=== PATIENT | female | born 1965 | race Caucasian/White ===

== ENCOUNTER 2019-09-06 06:49 | Observation (INO) | payer BC, OTHER ==
[2019-09-06] MEDS ORDERED: ONDANSETRON 4 MG/2 ML VIAL IVP STA (07:16)
[2019-09-06] MEDS ORDERED: SODIUM CHLORIDE 0.9% 1,000 ML IV STA (07:16)
[2019-09-06] MEDS ORDERED: HYDROmorphone 0.5 MG/0.5 ML SYRINGE IVP STA (07:16)
--- NOTE | 2019-09-06 07:26 | ED ---
General Adult HPI - General Source: patient, RN notes reviewed Mode of arrival: ambulatory Limitations: no limitations <Tanner Sanches - Last Filed: 09/06/19 10:07> <Carroll Pizarro - Last Filed: 09/06/19 10:09> - General Chief complaint: Abdominal Pain Stated complaint: Abd Pain Time Seen by Provider: 09/06/19 06:52 - History of Present Illness Initial comments: 53-year-old female presents to the emergency department for chief complaint of abdominal pain 4 days. Patient states she has had sharp upper abdominal pain. States that sometimes it is also lower. Patient does have nausea vomiting over the past few days. No diarrhea. Unsure what makes the pain worse but does admit that laying down and movement make it worse. Patient denies fevers or chills. Denies any previous abdominal surgeries. Patient has no other complaints at this time including shortness of breath, chest pain, headache, or visual changes. (Tanner Sanches) - Related Data Home Medications Medication Instructions Recorded Confirmed Ascorbic Acid [Vitamin C] 1,000 mg PO DAILY 09/06/19 09/06/19 Cholecalciferol [Vitamin D3 (25 1,000 unit PO DAILY 09/06/19 09/06/19 Mcg = 1000 Iu)] Multivitamins, Thera [Multivitamin 1 tab PO DAILY 09/06/19 09/06/19 (formulary)] Turmeric Root Extract [Turmeric] 500 mg PO DAILY 09/06/19 09/06/19 Vitamin C/Biotin [Hair, Skin and 1 tab PO DAILY 09/06/19 09/06/19 Nails] Allergies Allergy/AdvReac Type Severity Reaction Status Date / Time No Known Allergies Allergy Verified 09/06/19 07:40 Review of Systems ROS Other: All systems not noted in ROS Statement are negative. <Tanner Sanches - Last Filed: 09/06/19 10:07> ROS Other: All systems not noted in ROS Statement are negative. <Carroll Pizarro - Last Filed: 09/06/19 10:09> ROS Statement: Those systems with pertinent positive or pertinent negative responses have been documented in the HPI. Past Medical History Additional Past Medical History / Comment(s): M/S, History of Any Multi-Drug Resistant Organisms: None Reported Past Surgical History: Orthopedic Surgery Additional Past Surgical History / Comment(s): compound left tibia. Past Psychological History: No Psychological Hx Reported Smoking Status: Current every day smoker Past Alcohol Use History: Occasional Past Drug Use History: None Reported <Tanner Sanches - Last Filed: 09/06/19 10:07> General Exam Limitations: no limitations General appearance: alert, in no apparent distress Head exam: Present: atraumatic, normocephalic, normal inspection Eye exam: Present: normal appearance, PERRL, EOMI. Absent: scleral icterus, conjunctival injection, periorbital swelling ENT exam: Present: normal exam, mucous membranes moist Neck exam: Present: normal inspection, full ROM. Absent: tenderness, meningismus, lymphadenopathy Respiratory exam: Present: normal lung sounds bilaterally. Absent: respiratory distress, wheezes, rales, rhonchi, stridor Cardiovascular Exam: Present: regular rate, normal rhythm, normal heart sounds. Absent: systolic murmur, diastolic murmur, rubs, gallop, clicks GI/Abdominal exam: Present: soft, tenderness (epigastric and RUQ tenderness, worse in the RUQ. ), normal bowel sounds. Absent: distended, guarding, rebound, rigid Expanded GI/Abdominal exam: Present: Mckeon's sign <Tanner Sanches - Last Filed: 09/06/19 10:07> Course Vital Signs 09/06/19 06:53 Temperature 98.3 F Pulse Rate 118 H Respiratory 18 Rate Blood Pressure 110/73 O2 Sat by Pulse 98 Oximetry Medical Decision Making - Lab Data Result diagrams: 09/06/19 07:36 09/06/19 07:36 <Tanner Sanches - Last Filed: 09/06/19 10:07> - Lab Data Result diagrams: 09/06/19 07:36 09/06/19 07:36 <Carroll Pizarro - Last Filed: 09/06/19 10:09> - Medical Decision Making Patient initially presents tachycardic. Patient is in pain at this time. She has to give right upper quadrant tenderness. No abdominal surgery history. Patient does have a white blood cell count 10.8. CMP and rectal. Urinalysis unremarkable however there are 15 white blood cells, culture pending. Ultrasound of the right upper quadrant shows sonographic Mckeon findings supportive clinical suspicion for acute cholecystitis as there is redemonstration of large intraluminal gallstone along with small stones and/or gallbladder sludge. Abnormal gallbladder wall thickening and positive sonographic Mckeon sign in patient with right upper quadrant pain and symptoms of nausea and vomiting acute cholecystitis is suspected. Patient was evaluated by Dr. Pizarro is in agreement. Contacted Dr. Shukla who does accept this admission. (Tanner Sanches) Patient also examined by myself, Dr. Pizarro. Patient still has moderate right upper quadrant tenderness on exam. Results reviewed. Case discussed in detail with Dr. Nolan, who will admit covering for surgical call. (Carroll Pizarro) - Lab Data Lab Results 09/06/19 09/06/19 09/06/19 Range/Units 07:36 07:36 07:36 WBC 10.8 H (3.8-10.6) k/uL RBC 4.65 (3.80-5.40) m/uL Hgb 14.4 (11.4-16.0) gm/dL Hct 43.3 (34.0-46.0) % MCV 93.1 (80.0-100.0) fL MCH 31.1 (25.0-35.0) pg MCHC 33.4 (31.0-37.0) g/dL RDW 12.3 (11.5-15.5) % Plt Count 306 (150-450) k/uL Neutrophils % 79 % Lymphocytes % 12 % Monocytes % 6 % Eosinophils % 1 % Basophils % 0 % Neutrophils # 8.6 H (1.3-7.7) k/uL Lymphocytes # 1.3 (1.0-4.8) k/uL Monocytes # 0.6 (0-1.0) k/uL Eosinophils # 0.1 (0-0.7) k/uL Basophils # 0.1 (0-0.2) k/uL Sodium (137-145) mmol/L Potassium (3.5-5.1) mmol/L Chloride (98-107) mmol/L Carbon Dioxide (22-30) mmol/L Anion Gap mmol/L BUN (7-17) mg/dL Creatinine (0.52-1.04) mg/dL Est GFR (CKD-EPI)AfAm (>60 ml/min/1.73 sqM) Est GFR (CKD-EPI)NonAf (>60 ml/min/1.73 sqM) Glucose (74-99) mg/dL Calcium (8.4-10.2) mg/dL Total Bilirubin (0.2-1.3) mg/dL AST (14-36) U/L ALT (4-34) U/L Alkaline Phosphatase (38-126) U/L Troponin I (0.000-0.034) ng/mL Total Protein (6.3-8.2) g/dL Albumin (3.5-5.0) g/dL Amylase (30-110) U/L Lipase (23-300) U/L Urine Color Yellow Urine Appearance Cloudy H (Clear) Urine pH 5.5 (5.0-8.0) Ur Specific Hellier 1.028 (1.001-1.035) Urine Protein 1+ H (Negative) Urine Glucose (UA) Negative (Negative) Urine Ketones Negative (Negative) Urine Blood Negative (Negative) Urine Nitrite Negative (Negative) Urine Bilirubin Negative (Negative) Urine Urobilinogen 2.0 (<2.0) mg/dL Ur Leukocyte Esterase Small H (Negative) Urine RBC 4 (0-5) /hpf Urine WBC 15 H (0-5) /hpf Ur Squamous Epith Cells 1 (0-4) /hpf Urine Mucus Many H (None) /hpf Urine HCG, Qual Not Detected (Not Detectd) 09/06/19 09/06/19 Range/Units 07:36 07:36 WBC (3.8-10.6) k/uL RBC (3.80-5.40) m/uL Hgb (11.4-16.0) gm/dL Hct (34.0-46.0) % MCV (80.0-100.0) fL MCH (25.0-35.0) pg MCHC (31.0-37.0) g/dL RDW (11.5-15.5) % Plt Count (150-450) k/uL Neutrophils % % Lymphocytes % % Monocytes % % Eosinophils % % Basophils % % Neutrophils # (1.3-7.7) k/uL Lymphocytes # (1.0-4.8) k/uL Monocytes # (0-1.0) k/uL Eosinophils # (0-0.7) k/uL Basophils # (0-0.2) k/uL Sodium 137 (137-145) mmol/L Potassium 4.3 (3.5-5.1) mmol/L Chloride 104 (98-107) mmol/L Carbon Dioxide 25 (22-30) mmol/L Anion Gap 8 mmol/L BUN 21 H (7-17) mg/dL Creatinine 0.68 (0.52-1.04) mg/dL Est GFR (CKD-EPI)AfAm >90 (>60 ml/min/1.73 sqM) Est GFR (CKD-EPI)NonAf >90 (>60 ml/min/1.73 sqM) Glucose 116 H (74-99) mg/dL Calcium 9.6 (8.4-10.2) mg/dL Total Bilirubin 0.9 (0.2-1.3) mg/dL AST 30 (14-36) U/L ALT 23 (4-34) U/L Alkaline Phosphatase 66 (38-126) U/L Troponin I <0.012 (0.000-0.034) ng/mL Total Protein 7.1 (6.3-8.2) g/dL Albumin 4.0 (3.5-5.0) g/dL Amylase 45 (30-110) U/L Lipase 100 (23-300) U/L Urine Color Urine Appearance (Clear) Urine pH (5.0-8.0) Ur Specific Hellier (1.001-1.035) Urine Protein (Negative) Urine Glucose (UA) (Negative) Urine Ketones (Negative) Urine Blood (Negative) Urine Nitrite (Negative) Urine Bilirubin (Negative) Urine Urobilinogen (<2.0) mg/dL Ur Leukocyte Esterase (Negative) Urine RBC (0-5) /hpf Urine WBC (0-5) /hpf Ur Squamous Epith Cells (0-4) /hpf Urine Mucus (None) /hpf Urine HCG, Qual (Not Detectd) Disposition Is patient prescribed a controlled substance at d/c from ED?: No Time of Disposition: 10:08 <Tanner Sanches - Last Filed: 09/06/19 10:07> <Carroll Pizarro - Last Filed: 09/06/19 10:09> Clinical Impression: Cholecystitis Disposition: ADMITTED IP TO THIS HOSP Condition: Fair Referrals: Susan Mccauley MD [Primary Care Provider] - 1-2 days
[2019-09-06 07:54] LABS: Basophils # (A) 0.1 k/uL (0-0.2); Basophils % (A) 0 %; Eosinophils # (A) 0.1 k/uL (0-0.7); Eosinophils % (A) 1 %; HCT 43.3 % (34.0-46.0); HGB 14.4 gm/dL (11.4-16.0); Lymphocytes # (A) 1.3 k/uL (1.0-4.8); Lymphocytes % (A) 12 %; MCH 31.1 pg (25.0-35.0); MCHC 33.4 g/dL (31.0-37.0); MCV 93.1 fL (80.0-100.0); Mean Platelet Volume 7.6; Monocytes # (A) 0.6 k/uL (0-1.0); Monocytes % (A) 6 %; Neutrophils # (A) 8.6 k/uL (1.3-7.7); Neutrophils % (A) 79 %; Platelet Count 306 k/uL (150-450); RBC 4.65 m/uL (3.80-5.40); RDW 12.3 % (11.5-15.5); WBC 10.8 k/uL (3.8-10.6)
--- NOTE | 2019-09-06 08:03 | XR ---
KUB HISTORY: Abdominal pain and vomiting Frontal KUB and 2 images Lung bases are clear. There is a dextroscoliosis. No evident bowel obstruction or pneumoperitoneum. N o pathologic calcification. Air-fluid levels present within the pelvis without distention. Probable p hleboliths also present in the pelvis. IMPRESSION: Correlate for ileus or enteritis, follow-up as indicated.
[2019-09-06 08:07] LABS: ALT 23 U/L (4-34); AST 30 U/L (14-36); African American GFR (CKD) >90 (>60 ml/min/1.73 sqM); Alkaline Phosphatase 66 U/L (38-126); Amylase 45 U/L (30-110); Anion Gap 8 mmol/L; Blood Urea Nitrogen 21 mg/dL (7-17); Calcium 9.6 mg/dL (8.4-10.2); Carbon Dioxide 25 mmol/L (22-30); Chloride 104 mmol/L (98-107); Glucose 116 mg/dL (74-99); Non-African American GFR(CKD) >90 (>60 ml/min/1.73 sqM); Potassium 4.3 mmol/L (3.5-5.1); Sodium 137 mmol/L (137-145); Total Bilirubin 0.9 mg/dL (0.2-1.3); Total Protein 7.1 g/dL (6.3-8.2)
[2019-09-06 08:10] LABS: Appearance,Urine Cloudy (Clear); Bilirubin,Urine Negative (Negative); Blood,Urine Negative (Negative); Color,Urine Yellow; Glucose,Urine (UA) Negative (Negative); Ketones,Urine Negative (Negative); Leukocyte Esterase,Urine Small (Negative); Mucus,Urine Many /hpf; Nitrite,Urine Negative (Negative); PH, Urine 5.5 (5.0-8.0); Protein,Urine 1+ (Negative); RBC,Urine 4 /hpf (0-5); Specific Gravity,Urine 1.028 (1.001-1.035); Squamous Epithelial Cell,Urine 1 /hpf (0-4); WBC,Urine 15 /hpf (0-5)
--- NOTE | 2019-09-06 09:00 | US ---
EXAMINATION TYPE: US abdomen limited DATE OF EXAM: 09/06/2019 COMPARISON: CT 2016 CLINICAL HISTORY: RUQ. Intermittent abdomen pain and N/V x couple days EXAM MEASUREMENTS: Liver Length: 16.7 cm Gallbladder Wall: 0.6 cm CBD: 0.6 cm Right Kidney: 10.1 x 4.4 x 4.8 cm Pancreas: visualized portions wnl, duct seen measuring wnl, tail limited by overlying midline bowel gas Liver: 1.2 x 0.9 x 1.1cm hypoechoic area left lobe Gallbladder: borderline hydropic, 2.2cm non mobile echogenic shadowing stone with sludge, wall thick ened with multiple tiny echogenic foci with ringdown Evidence for sonographic Mckeon's sign: yes CBD: wnl Right Kidney: 0.8cm hypoechoic focus medial superior pole Visualized pancreas thought within normal limits. Visualized liver shows roughly 1 cm round anechoic 2 hypoechoic lesion with increased through transmission consistent with simple thin-walled cyst left hepatic lobe corresponding to CT axial image 24. Gallbladder seen with nonshadowing hyperechoic mobil e material thought to reflect gallbladder sludge and/or small stones with larger 2.2 cm mobile shadow ing stone redemonstrated. Gallbladder wall is abnormally thickened up to 6 mm. Sonographic Mckeon's s ign positive. IMPRESSION: Sonographic Mckeon findings support clinical suspicion for acute cholecystitis as there i s redemonstration of large intraluminal gallstone along with small stones and/or gallbladder sludge. There is abnormal gallbladder wall thickening and positive sonographic Mckeon's sign in patient with right upper quadrant pain and symptoms of nausea and vomiting acute cholecystitis is suspected. A Document Only message has been documented for Brandon Blank MD in the [employer] Critical [facility] sult system on 09/06/2019 8:57 AM, Message ID [id number].
[2019-09-06] MEDS ORDERED: NALOXONE 0.4 MG/ML 1 ML VIAL IV PRN (10:04)
[2019-09-06] MEDS ORDERED: ONDANSETRON 4 MG/2 ML VIAL IVP PRN ×2 (10:04→13:24)
[2019-09-06] MEDS: SODIUM CHLORIDE 0.9% 1,000 ML IV SCH ×2 (10:35→19:07)
[2019-09-06] MEDS: PIPERACILLIN-TAZOBACTAM 3.375 GM in SODIUM CHLORIDE 0.9% 100 ML IVPB SCH ×2 (10:50→20:24)
--- NOTE | 2019-09-06 13:21 | P.GSHP ---
<Kanchan Rosa A - Last Filed: 09/06/19 13:20> History of Present Illness H&P Date: 09/06/19 Chief Complaint: abdominal pain CHIEF COMPLAINT: Abdominal pain HISTORY OF PRESENT ILLNESS: 53-year-old female presented to the emergency room with a chief complaint of abdominal pain. Patient states she has been having abdominal pain for the past 3-4 days. She reports the pain is mostly in the epigastric region and it also radiated to her back. She reports mild nausea. She reports vomiting 2 days ago. Denies fever or chills. Denies diarrhea, but reports looser stools. PAST MEDICAL HISTORY: See list. PAST SURGICAL HISTORY: See list. SOCIAL HISTORY: No illicit drug use. REVIEW OF SYSTEMS: CONSTITUTIONAL: Denies fever or chills. HEENT: Denies blurred vision, vision changes, or eye pain. Denies hemoptysis CARDIOVASCULAR: Denies chest pain or pressure. RESPIRATORY: No shortness of breath. GASTROINTESTINAL: Refer to [facility] for pertinent findings HEMATOLOGIC: Denies bleeding disorders. GENITOURINARY: Denies any blood in urine. SKIN: Denies pruitis. Denies rash. PHYSICAL EXAM: VITAL SIGNS: Reviewed. GENERAL: Well-developed in no acute distress. HEENT: No sclera icterus. Extraocular movements grossly intact. Moist buccal mucosa. Head is atraumatic, normocephalic. ABDOMEN: Soft. Nondistended. Nontender. NEUROLOGIC: Alert and oriented. Cranial nerves II through XII grossly intact. LABORATORY DATA: WBC 10.8. Hemoglobin 14.4. Platelet count 306. IMAGING: Abdominal ultrasound: Borderline hydropic. 2.2 cm nonmobile echogenic shadowing stone was sludge. Wall thickened with multiple tiny echogenic foci ASSESSMENT: 1. Abdominal pain 2. Acute cholecystitis PLAN: NPO Continue IV antibiotics Patient to undergo laparoscopic cholecystectomy today with Dr. Shukla Nurse practitioner note has been reviewed by physician. Signing provider agrees with the documented findings, assessment, and plan of care. Past Medical History Additional Past Medical History / Comment(s): Bronchitis-on antibiotic, multiple sclerosis, past UTIs. History of Any Multi-Drug Resistant Organisms: None Reported Past Surgical History: Orthopedic Surgery Additional Past Surgical History / Comment(s): Surgiery for compound left tibia fracture, bilateral laser eye surgery. Past Anesthesia/Blood Transfusion Reactions: No Reported Reaction Smoking Status: Current every day smoker - Past Family History Father Family Medical History: Musculoskeletal Disorder, Neurologic Disorder Additional Family Medical History / Comment(s): Father at the age of 46 from MS complications. Mother Family Medical History: COPD, Myocardial Infarction (NV) Additional Family Medical History / Comment(s): Mother is 73 yrs old. She had a NV at the age of 72 yrs. Medications and Allergies Home Medications Medication Instructions Recorded Confirmed Type Ascorbic Acid [Vitamin C] 1,000 mg PO DAILY 09/06/19 09/06/19 History Cholecalciferol [Vitamin D3 (25 1,000 unit PO DAILY 09/06/19 09/06/19 History Mcg = 1000 Iu)] Multivitamins, Thera [Multivitamin 1 tab PO DAILY 09/06/19 09/06/19 History (formulary)] Turmeric Root Extract [Turmeric] 500 mg PO DAILY 09/06/19 09/06/19 History Vitamin C/Biotin [Hair, Skin and 1 tab PO DAILY 09/06/19 09/06/19 History Nails] Allergies Allergy/AdvReac Type Severity Reaction Status Date / Time No Known Allergies Allergy Verified 09/06/19 07:40 Surgical - Exam Vital Signs Temp Pulse Resp BP Pulse Ox 98.3 F 118 H 18 110/73 98 09/06/19 06:53 09/06/19 06:53 09/06/19 06:53 09/06/19 06:53 09/06/19 06:53 Results - Labs 09/06/19 07:36 09/06/19 07:36 Abnormal Lab Results - Last 24 Hours (Table) 09/06/19 09/06/19 09/06/19 Range/Units 07:36 07:36 07:36 WBC 10.8 H (3.8-10.6) k/uL Neutrophils # 8.6 H (1.3-7.7) k/uL BUN 21 H (7-17) mg/dL Glucose 116 H (74-99) mg/dL Urine Appearance Cloudy H (Clear) Urine Protein 1+ H (Negative) Ur Leukocyte Esterase Small H (Negative) Urine WBC 15 H (0-5) /hpf Urine Mucus Many H (None) /hpf Diabetes panel 09/06/19 Range/Units 07:36 Sodium 137 (137-145) mmol/L Potassium 4.3 (3.5-5.1) mmol/L Chloride 104 (98-107) mmol/L Carbon Dioxide 25 (22-30) mmol/L BUN 21 H (7-17) mg/dL Creatinine 0.68 (0.52-1.04) mg/dL Glucose 116 H (74-99) mg/dL Calcium 9.6 (8.4-10.2) mg/dL AST 30 (14-36) U/L ALT 23 (4-34) U/L Alkaline Phosphatase 66 (38-126) U/L Total Protein 7.1 (6.3-8.2) g/dL Albumin 4.0 (3.5-5.0) g/dL Calcium panel 09/06/19 Range/Units 07:36 Calcium 9.6 (8.4-10.2) mg/dL Albumin 4.0 (3.5-5.0) g/dL Pituitary panel 09/06/19 Range/Units 07:36 Sodium 137 (137-145) mmol/L Potassium 4.3 (3.5-5.1) mmol/L Chloride 104 (98-107) mmol/L Carbon Dioxide 25 (22-30) mmol/L BUN 21 H (7-17) mg/dL Creatinine 0.68 (0.52-1.04) mg/dL Glucose 116 H (74-99) mg/dL Calcium 9.6 (8.4-10.2) mg/dL Adrenal panel 09/06/19 Range/Units 07:36 Sodium 137 (137-145) mmol/L Potassium 4.3 (3.5-5.1) mmol/L Chloride 104 (98-107) mmol/L Carbon Dioxide 25 (22-30) mmol/L BUN 21 H (7-17) mg/dL Creatinine 0.68 (0.52-1.04) mg/dL Glucose 116 H (74-99) mg/dL Calcium 9.6 (8.4-10.2) mg/dL Total Bilirubin 0.9 (0.2-1.3) mg/dL AST 30 (14-36) U/L ALT 23 (4-34) U/L Alkaline Phosphatase 66 (38-126) U/L Total Protein 7.1 (6.3-8.2) g/dL Albumin 4.0 (3.5-5.0) g/dL <MattbijuHéctor - Last Filed: 09/06/19 15:05> Surgical - Exam Vital Signs Temp Pulse Resp BP Pulse Ox 98.3 F 118 H 18 110/73 98 09/06/19 06:53 09/06/19 06:53 09/06/19 06:53 09/06/19 06:53 09/06/19 06:53 Results - Labs 09/06/19 07:36 09/06/19 07:36 Abnormal Lab Results - Last 24 Hours (Table) 09/06/19 09/06/19 09/06/19 Range/Units 07:36 07:36 07:36 WBC 10.8 H (3.8-10.6) k/uL Neutrophils # 8.6 H (1.3-7.7) k/uL BUN 21 H (7-17) mg/dL Glucose 116 H (74-99) mg/dL Urine Appearance Cloudy H (Clear) Urine Protein 1+ H (Negative) Ur Leukocyte Esterase Small H (Negative) Urine WBC 15 H (0-5) /hpf Urine Mucus Many H (None) /hpf Diabetes panel 09/06/19 Range/Units 07:36 Sodium 137 (137-145) mmol/L Potassium 4.3 (3.5-5.1) mmol/L Chloride 104 (98-107) mmol/L Carbon Dioxide 25 (22-30) mmol/L BUN 21 H (7-17) mg/dL Creatinine 0.68 (0.52-1.04) mg/dL Glucose 116 H (74-99) mg/dL Calcium 9.6 (8.4-10.2) mg/dL AST 30 (14-36) U/L ALT 23 (4-34) U/L Alkaline Phosphatase 66 (38-126) U/L Total Protein 7.1 (6.3-8.2) g/dL Albumin 4.0 (3.5-5.0) g/dL Calcium panel 09/06/19 Range/Units 07:36 Calcium 9.6 (8.4-10.2) mg/dL Albumin 4.0 (3.5-5.0) g/dL Pituitary panel 09/06/19 Range/Units 07:36 Sodium 137 (137-145) mmol/L Potassium 4.3 (3.5-5.1) mmol/L Chloride 104 (98-107) mmol/L Carbon Dioxide 25 (22-30) mmol/L BUN 21 H (7-17) mg/dL Creatinine 0.68 (0.52-1.04) mg/dL Glucose 116 H (74-99) mg/dL Calcium 9.6 (8.4-10.2) mg/dL Adrenal panel 09/06/19 Range/Units 07:36 Sodium 137 (137-145) mmol/L Potassium 4.3 (3.5-5.1) mmol/L Chloride 104 (98-107) mmol/L Carbon Dioxide 25 (22-30) mmol/L BUN 21 H (7-17) mg/dL Creatinine 0.68 (0.52-1.04) mg/dL Glucose 116 H (74-99) mg/dL Calcium 9.6 (8.4-10.2) mg/dL Total Bilirubin 0.9 (0.2-1.3) mg/dL AST 30 (14-36) U/L ALT 23 (4-34) U/L Alkaline Phosphatase 66 (38-126) U/L Total Protein 7.1 (6.3-8.2) g/dL Albumin 4.0 (3.5-5.0) g/dL
[2019-09-06] MEDS ORDERED: HYDROmorphone 0.5 MG/0.5 ML SYRINGE IVP PRN (13:24)
[2019-09-06] MEDS ORDERED: ACETAMINOPHEN TAB 325 MG TAB PO PRN (13:25)
[2019-09-06] MEDS ORDERED: IV FLUID CONTINUATION 1,000 ML IV ONE (14:00)
[2019-09-06] MEDS: HEPARIN SODIUM,PORCINE 5,000 UNIT/ML 1 ML VIAL SQ SCH (14:11)
[2019-09-06] MEDS ORDERED: DEXAMETHASONE SOD PHOSPHATE 10 MG/ML 1 ML VIAL IV ONE (14:11)
[2019-09-06] MEDS ORDERED: ONDANSETRON 4 MG/2 ML VIAL IVP ONE (14:12)
--- NOTE | 2019-09-06 15:11 | P.HPADDEND ---
H&P Addendum H&P Addendum Date: 09/06/19 Please refer to H&P dictated by nurse practitioner. Patient with epigastric pain radiating to the back. Significant right upper quadrant tenderness both on physical exam and on ultrasound. Gallbladder wall is thickened with stones. Liver enzymes appear normal. She did describe her urine today is being more orange-colored than usual. No rectal bleeding or melena. No fevers. No cough. Was recently treated for bronchitis. She stopped her antibiotics 2 days ago. We'll proceed with laparoscopic, possible open cholecystectomy. Risks of bleeding, infection, bile leak, bile duct injury, retained common bile duct stone, trocar injury, conversion to an open procedure, hernia, anesthesia related complications were reviewed. The patient understands and wishes to proceed.
[2019-09-06] MEDS ORDERED: ePHEDrine SULFATE/0.9% NACL/PF 50 MG/5 ML SYRINGE IV ONE (15:18)
[2019-09-06] MEDS ORDERED: SUCCINYLCHOLINE CHLORIDE 100 MG/5 ML SYR IV ONE (15:18)
[2019-09-06] MEDS ORDERED: GLYCOPYRROLATE 0.2 MG/ML 2 ML VIAL ONE (15:18)
[2019-09-06] MEDS ORDERED: LIDOCAINE 1% INJ 10MG/ML (20 ML MDV) ONE (15:18)
[2019-09-06] MEDS ORDERED: fentaNYL (PF) 50 MCG/ML 2 ML AMP ONE (15:18)
[2019-09-06] MEDS ORDERED: ROCURONIUM BROMIDE 10 MG/ML 5 ML VIAL IV ONE (15:18)
[2019-09-06] MEDS ORDERED: PROPOFOL 10 MG/ML 20 ML VIAL IV ONE (15:18)
[2019-09-06] MEDS ORDERED: KETOROLAC 30 MG/ML 1 ML VIAL ONE (15:18)
[2019-09-06] MEDS ORDERED: NEOSTIGMINE 1 MG/ML 10 ML VIAL ONE (15:18)
[2019-09-06] MEDS ORDERED: MIDAZOLAM 2 MG/2 ML VIAL ONE (15:18)
[2019-09-06] MEDS ORDERED: HYDROmorphone (PF) 1 MG/ML ONE (15:18)
[2019-09-06] MEDS ORDERED: BUPIVACAIN-EPI 0.25%-1:200,000 30 ML VIAL SQ ONE ×2 (15:43)
[2019-09-06] MEDS ORDERED: HYDROcodone/APAP 5-325MG 1 EACH TAB PO PRN (16:34)
--- NOTE | 2019-09-06 16:37 | P.OP ---
Date of Procedure: 09/06/19 Procedure(s) Performed: PREOPERATIVE DIAGNOSIS: Acute cholecystitis POSTOPERATIVE DIAGNOSIS: Same PROCEDURE: Laparoscopic cholecystectomy SURGEON: Vazquez EBL: 20 mL ANESTHESIA: Gen. COMPLICATIONS: None OPERATIVE PROCEDURE: The patient was brought and placed on the operating room table in the supine position. The patient was placed under general anesthesia at that time. The abdomen was prepped and draped in the usual sterile fashion. A small vertical infraumbilical incision was made. The fascia was grasped with the Boris forceps. The fascia was retracted anteriorly. The Veress needle was advanced into the peritoneal cavity. The saline drop test was normal. Insufflation took place up to 15 mmHg. A 5 mm optical trocar was advanced and the peritoneal cavity. 2 additional 5 mm trochars were placed in the right upper quadrant under direct visualization. A 12 mm trocar was advanced into the epigastric incision site. The gallbladder was acutely inflamed. The wall was edematous. The omentum was slightly adherent to the gallbladder. In fact the patient's gallbladder was palpable on physical examination prior to surgical start. In order to manipulate the gallbladder a small opening was made in the fundus using electrocautery. The contents were evacuated using the suction device. The gallbladder was retracted superiorly and laterally. The peritoneum overlying the infundibulum was bluntly dissected. The patient's cystic duct was visualized. The junction between the cystic duct common and hepatic duct was identified. The cystic duct was then divided after placement of 3 12 mm clips on the patient's side and one on the specimen side. The cystic artery was identified and clipped as well. A small vessel was seen along the gallbladder fossa and clipped as well. The gallbladder was then removed from the liver bed using electrocautery. The gallbladder was then removed from the epigastric trocar site with an Endo Catch bag. The gallbladder fossa was irrigated with saline. There was no evidence of any bleeding or biliary drainage seen. The fascia at the 12 millimeter site was closed using a running 0 Vicryl stitch. The trochars were then removed. The skin at all 4 sites was closed using a 4-0 Monocryl stitch. Skin glue was utilized on the incision sites. At the end of this procedure the sponge and needle counts were correct. DISPOSITION: Stable to the recovery room
[2019-09-06] MEDS ORDERED: HYDROmorphone 1 MG/ML 1 ML SYRINGE IVP ONE ×2 (17:19→17:30)
[2019-09-07] MEDS: SODIUM CHLORIDE 0.9% 1,000 ML IV SCH ×2 (03:47→12:22)
[2019-09-07] MEDS: PIPERACILLIN-TAZOBACTAM 3.375 GM in SODIUM CHLORIDE 0.9% 100 ML IVPB SCH ×3 (04:28→19:48)
[2019-09-07] MEDS: HEPARIN SODIUM,PORCINE 5,000 UNIT/ML 1 ML VIAL SQ SCH ×2 (08:44→19:47)
[2019-09-07] MEDS: PANTOPRAZOLE 40 MG/10 ML VIAL IVP SCH (08:44)
[2019-09-07 09:05] LABS: Basophils % (A) 0 %; Eosinophils % (A) 0 %; HCT 38.3 % (34.0-46.0); HGB 12.2 gm/dL (11.4-16.0); Lymphocytes % (A) 12 %; MCH 30.7 pg (25.0-35.0); MCHC 31.9 g/dL (31.0-37.0); MCV 96.4 fL (80.0-100.0); Mean Platelet Volume 8.1; Monocytes # (A) 0.3 k/uL (0-1.0); Monocytes % (A) 4 %; Neutrophils # (A) 6.4 k/uL (1.3-7.7); Neutrophils % (A) 81 %; Platelet Count 294 k/uL (150-450); RBC 3.97 m/uL (3.80-5.40); RDW 12.4 % (11.5-15.5); WBC 7.9 k/uL (3.8-10.6)
[2019-09-07 09:21] LABS: AST 531 U/L (14-36); African American GFR (CKD) >90 (>60 ml/min/1.73 sqM); Albumin 3.4 g/dL (3.5-5.0); Alkaline Phosphatase 135 U/L (38-126); Anion Gap 6 mmol/L; Blood Urea Nitrogen 14 mg/dL (7-17); Calcium 8.8 mg/dL (8.4-10.2); Carbon Dioxide 25 mmol/L (22-30); Chloride 107 mmol/L (98-107); Glucose 84 mg/dL (74-99); Non-African American GFR(CKD) >90 (>60 ml/min/1.73 sqM); Potassium 4.5 mmol/L (3.5-5.1); Sodium 138 mmol/L (137-145); Total Bilirubin 1.5 mg/dL (0.2-1.3); Total Protein 6.2 g/dL (6.3-8.2)
[2019-09-07 09:49] LABS: ALT 498 U/L (4-34)
[2019-09-07 11:23] VITALS: BMI 22.8
--- NOTE | 2019-09-07 13:36 | P.PN ---
Subjective Progress Note Date: 09/07/19 Principal diagnosis: Acute cholecystitis Patient states her pain is improved today. Unfortunately her liver enzymes one from normal to moderate elevation today. Preoperatively the patient mentioned her urine was darker orange in color and says that is persisting. No nausea or vomiting currently. Tolerating regular diet. Able to ambulate with less discomfort. Objective - Vital Signs Vital signs: Vital Signs Temp 98 F 09/07/19 12:21 Pulse 56 L 09/07/19 12:21 Resp 17 09/07/19 12:21 BP 95/57 09/07/19 12:21 Pulse Ox 98 09/07/19 12:21 Intake & Output 09/06/19 09/07/19 09/07/19 18:59 06:59 18:59 Intake Total 550 2340 Output Total 20 1000 Balance 530 1340 Weight 56.699 kg 56.699 kg Intake: IV 550 Intake, IV Titration 1740 Amount Piperacillin-Tazobactam 3 300 .375 gm In Sodium Chloride 0.9% 100 ml @ 25 mls/hr IVPB [facility] Rx#: [id number] Sodium Chloride 0.9% 1, 1440 000 ml @ 120 mls/hr IV . [facility]8H20M [facility] Rx#:[id number] Oral 600 Output: Urine 1000 Estimated Blood Loss 20 Other: Voiding Method Toilet Toilet - Exam Abdomen: Soft, nondistended, mild incisional tenderness, exquisite right upper quadrant pain present yesterday is absent - Labs CBC & Chem 7: 09/07/19 07:22 09/07/19 07:22 Labs: Abnormal Lab Results - Last 24 Hours (Table) 09/07/19 Range/Units 07:22 Total Bilirubin 1.5 H (0.2-1.3) mg/dL AST 531 H (14-36) U/L ALT 498 H (4-34) U/L Alkaline Phosphatase 135 H (38-126) U/L Total Protein 6.2 L (6.3-8.2) g/dL Albumin 3.4 L (3.5-5.0) g/dL Microbiology - Last 24 Hours (Table) 09/06/19 10:44 Blood Culture - Preliminary Blood No Growth after 24 hours 09/06/19 07:36 Urine Culture - Preliminary Urine,Voided Gram Neg Bacilli Assessment and Plan (1) Cholecystitis Narrative/Plan: One of the issues the patient and her family and I discussed yesterday was the possibility of choledocholithiasis given the orange-colored urine. I do suspect a single labs today that that is the most likely etiology. Underlying iatrogenic injury less likely. We'll consult GI for ERCP at this time. Continue antibiotics. Current Visit: Yes Status: Acute Code(s): K81.9 - CHOLECYSTITIS, UNSPECIFIED SNOMED Code(s): 08679682
--- NOTE | 2019-09-07 21:56 | P.CONS ---
History of Present Illness - Reason for Consult Consult date: 09/07/19 Elevated liver enzymes Requesting physician: Héctor Shukla - Chief Complaint Abdominal pain - History of Present Illness 53-year-old pleasant female who presented to the hospital with complaints of abdominal pain. The patient had been reporting abdominal pain described as sharp in the right upper quadrant and epigastric region of her abdomen. She did report nausea and vomiting associated with her abdominal pain and dark colored urine. She denied any previous abdominal surgeries and was seen with a diagnosis of acute cholecystitis. The patient was taken for successful laparoscopic cholecystectomy. The patient whose liver enzymes were normal on admission with a total bilirubin of 0.9, alkaline phosphatase 66, AST 30 and ALT 23 subsequently had elevation in her liver enzymes on day 1 status post cholecystectomy with total bilirubin 1.5, alkaline phosphatase 135, AST 531 and ALT 498. Gastroenterology was consult for further evaluation. She denies any eliza pain in the right upper quadrant but does report some soreness. She has been tolerating her diet. Denies any fevers or chills. Review of Systems REVIEW OF SYSTEMS: CONSTITUTIONAL: Denies any fevers, chills, weight change or fatigue. CARDIOVASCULAR: Denies any chest pain, palpitations high or low blood pressures RESPIRATORY: Denies any shortness of breath, hemoptysis or cough. GENITOURINARY: No dysuria or hematuria, but does report dark urine. MUSCULOSKELETAL: No weakness reported. SKIN: Denies any new rashes or lesions, jaundice or pallor. PSYCHIATRIC: Denies any depression or anxiety. NEUROLOGY: Denies headache, denies any new focal deficits. EARS/NOSE/THROAT: No recent hearing change, congestion, nasal discharge or sore throat. EYES: No pain in eyes, discharge or change in vision. GASTROINTESTINAL: As per HPI. Past Medical History Additional Past Medical History / Comment(s): Bronchitis-on antibiotic, multiple sclerosis, past UTIs. History of Any Multi-Drug Resistant Organisms: None Reported Past Surgical History: Orthopedic Surgery Additional Past Surgical History / Comment(s): Surgiery for compound left tibia fracture, bilateral laser eye surgery. Past Anesthesia/Blood Transfusion Reactions: No Reported Reaction Smoking Status: Current every day smoker - Past Family History Father Family Medical History: Musculoskeletal Disorder, Neurologic Disorder Additional Family Medical History / Comment(s): Father at the age of 46 from MS complications. Mother Family Medical History: COPD, Myocardial Infarction ([place]) Additional Family Medical History / Comment(s): Mother is 73 yrs old. She had a CO at the age of 72 yrs. Medications and Allergies Home Medications Medication Instructions Recorded Confirmed Type Ascorbic Acid [Vitamin C] 1,000 mg PO DAILY 09/06/19 09/06/19 History Cholecalciferol [Vitamin D3 (25 1,000 unit PO DAILY 09/06/19 09/06/19 History Mcg = 1000 Iu)] Multivitamins, Thera [Multivitamin 1 tab PO DAILY 09/06/19 09/06/19 History (formulary)] Turmeric Root Extract [Turmeric] 500 mg PO DAILY 09/06/19 09/06/19 History Vitamin C/Biotin [Hair, Skin and 1 tab PO DAILY 09/06/19 09/06/19 History Nails] oxyCODONE HCL [OxyIR] 5 mg PO Q6H PRN 3 Days #6 tab 09/07/19 Rx Allergies Allergy/AdvReac Type Severity Reaction Status Date / Time No Known Allergies Allergy Verified 09/06/19 07:40 Physical Exam Vitals: Vital Signs Temp Pulse Pulse Resp BP Pulse Ox 09/07/19 20:31 98.2 F 68 16 110/70 98 09/07/19 12:21 98 F 56 L 17 95/57 98 09/07/19 05:00 97.9 F 63 16 98/60 96 09/06/19 21:05 75 15 97/61 95 Intake and Output 09/07/19 09/07/19 09/07/19 06:59 14:59 22:59 Intake Total 1940 580 Output Total 1000 Balance 940 580 Intake: Intake, IV Titration 1640 100 Amount Piperacillin-Tazobactam 3 200 100 .375 gm In Sodium Chloride 0.9% 100 ml @ 25 mls/hr IVPB Q8H [facility] Rx#: [id number] Sodium Chloride 0.9% 1, 1440 000 ml @ 120 mls/hr IV . Q8H20M [facility] Rx#:[id number] Oral 300 480 Output: Urine 1000 Other: Voiding Method Toilet Toilet Toilet Weight 56.699 kg On physical examination, patient appears comfortable in no apparent distress. HEAD: Normocephalic, atraumatic. EYES: No scleral icterus. No conjunctival injection. MOUTH: No lesions, tongue midline. NECK: Trachea midline, no gross abnormalities. CHEST: Clear to auscultation with no wheezing or rhonchi appreciated. HEART: Regular rate and rhythm. ABDOMEN: Soft, appropriately tender. Bowel sounds are positive. No organomegaly. No guarding or rigidity. EXTREMITIES: No pedal edema. SKIN: No rashes, no jaundice. NEUROLOGIC: Alert and oriented x3. No focal deficits. Results CBC & Chem 7: 09/07/19 07:22 09/07/19 07:22 Labs: Abnormal Lab Results - Last 24 Hours (Table) 09/07/19 Range/Units 07:22 Total Bilirubin 1.5 H (0.2-1.3) mg/dL AST 531 H (14-36) U/L ALT 498 H (4-34) U/L Alkaline Phosphatase 135 H (38-126) U/L Total Protein 6.2 L (6.3-8.2) g/dL Albumin 3.4 L (3.5-5.0) g/dL Microbiology - Last 24 Hours (Table) 09/06/19 10:44 Blood Culture - Preliminary Blood No Growth after 24 hours 09/06/19 07:36 Urine Culture - Preliminary Urine,Voided Gram Neg Bacilli US - abdomen: report reviewed (US with cholelithiasis, chlecystitis and positive velázquez's sign) Assessment and Plan (1) Elevated liver enzymes Narrative/Plan: 53-year-old female presented to the hospital with complaints of abdominal pain found to have acute cholecystitis on ultrasound imaging and status post laparoscopic cholecystectomy. The patient whose liver enzymes were initially normal on presentation trended up today with total bilirubin 1.5, alkaline phosphatase 135, AST 531 and ALT 498. She is denying any eliza pain but does report tenderness in the area of cholecystectomy. Unclear etiology may be related to recent cholecystectomy and cholecystitis, retained CBD stone, a CBD stone which is passed through the bile duct or other etiology. Current Visit: Yes Status: Acute Code(s): R74.8 - ABNORMAL LEVELS OF OTHER SERUM ENZYMES SNOMED Code(s): 027893164 (2) Cholecystitis Current Visit: Yes Status: Acute Code(s): K81.9 - CHOLECYSTITIS, UNSPECIFIED SNOMED Code(s): 48379886 Plan: Supportive care Diet per surgical service, okay to continue at this time Continue to monitor CBC, CMP We will evaluate liver enzymes tomorrow Continue broad-spectrum antibiotic therapy Decision on further imaging or possible ERCP will be based on liver enzymes tomorrow and clinical status of the patient Thank you for allowing us to participate in the care of the patient we will continue to follow
[2019-09-08] MEDS: SODIUM CHLORIDE 0.9% 1,000 ML IV SCH ×3 (04:22→13:22)
[2019-09-08] MEDS: PIPERACILLIN-TAZOBACTAM 3.375 GM in SODIUM CHLORIDE 0.9% 100 ML IVPB SCH ×2 (05:04→13:21)
[2019-09-08 07:46] LABS: ALT 356 U/L (4-34); AST 181 U/L (14-36); African American GFR (CKD) >90 (>60 ml/min/1.73 sqM); Albumin 3.3 g/dL (3.5-5.0); Alkaline Phosphatase 118 U/L (38-126); Anion Gap 5 mmol/L; Blood Urea Nitrogen 12 mg/dL (7-17); Calcium 8.9 mg/dL (8.4-10.2); Carbon Dioxide 28 mmol/L (22-30); Chloride 109 mmol/L (98-107); Glucose 90 mg/dL (74-99); Non-African American GFR(CKD) >90 (>60 ml/min/1.73 sqM); Potassium 4.1 mmol/L (3.5-5.1); Sodium 142 mmol/L (137-145); Total Bilirubin 0.7 mg/dL (0.2-1.3); Total Protein 6.1 g/dL (6.3-8.2)
[2019-09-08] MEDS: PANTOPRAZOLE 40 MG/10 ML VIAL IVP SCH (08:35)
[2019-09-08] MEDS: HEPARIN SODIUM,PORCINE 5,000 UNIT/ML 1 ML VIAL SQ SCH (08:39)
--- NOTE | 2019-09-08 09:53 | P.CONS ---
History of Present Illness - History of Present Illness Covering Dr. Connors over the weekend, he'll resume the care of the patient on Tuesday This is a pleasant 53 years old female with past medical history of bronchitis and multiple sclerosis, sLooks like patient presents with signs symptoms of cholecystitis, she is status post laparoscopic cholecystectomy on 09/06/19. Today is postoperative day #2. Yesterday she had some solid and she did well with that she did not pass and bowel movement but passing gas only, her right upper quadrant abdominal pain on the presentation is better today as per patient it no cough and no chest pain however she reports increase in frequency of urination on admission she quit smoking about 2 years ago, occasional alcohol and she favors sometimes Labs showing mild leukocytosis on admission of 10.8, subsequently it went down to normal at 7.5K, rest of CBC is unremarkable, BMP is unremarkable as well. Liver enzymes which were normal on admission, start trending up with AST at 30, 531 and 181 while ALT 23, 498, 356 respectively. Elevated bilirubin at 1.5 came back to normal 0.7, UA is slightly suspicious for infection with small leukocyte esterase and WBCs of 15 in urine. Urine culture is growing E. coli cystitis to many antibiotics, normal saline at 120 mm per hour Review of Systems CONSTITUTIONAL: No fever, no malaise, no fatigue. HEENT: No recent visual problems or hearing problems. Denied any sore throat. CARDIOVASCULAR: No orthopnea, PND, no palpitations, no syncope. PULMONARY: No shortness of breath, no cough, no hemoptysis. GASTROINTESTINAL: No diarrhea, no nausea, no vomiting, no abdominal pain. Normoactive bowel sounds. NEUROLOGICAL: No headaches, no weakness, no numbness. HEMATOLOGICAL: Denies any bleeding or petechiae. GENITOURINARY: Denies any burning micturition, frequency, or urgency. MUSCULOSKELETAL/RHEUMATOLOGICAL: Denies any joint pain, swelling, or any muscle pain. ENDOCRINE: Denies any polyuria or polydipsia. Past Medical History Additional Past Medical History / Comment(s): Bronchitis-on antibiotic, multiple sclerosis, past UTIs. History of Any Multi-Drug Resistant Organisms: None Reported Past Surgical History: Orthopedic Surgery Additional Past Surgical History / Comment(s): Surgiery for compound left tibia fracture, bilateral laser eye surgery. Past Anesthesia/Blood Transfusion Reactions: No Reported Reaction Smoking Status: Current every day smoker - Past Family History Father Family Medical History: Musculoskeletal Disorder, Neurologic Disorder Additional Family Medical History / Comment(s): Father at the age of 46 from MS complications. Mother Family Medical History: COPD, Myocardial Infarction ([place]) Additional Family Medical History / Comment(s): Mother is 73 yrs old. She had a PA at the age of 72 yrs. Medications and Allergies Home Medications Medication Instructions Recorded Confirmed Type Ascorbic Acid [Vitamin C] 1,000 mg PO DAILY 09/06/19 09/06/19 History Cholecalciferol [Vitamin D3 (25 1,000 unit PO DAILY 09/06/19 09/06/19 History Mcg = 1000 Iu)] Multivitamins, Thera [Multivitamin 1 tab PO DAILY 09/06/19 09/06/19 History (formulary)] Turmeric Root Extract [Turmeric] 500 mg PO DAILY 09/06/19 09/06/19 History Vitamin C/Biotin [Hair, Skin and 1 tab PO DAILY 09/06/19 09/06/19 History Nails] oxyCODONE HCL [OxyIR] 5 mg PO Q6H PRN 3 Days #6 tab 09/07/19 Rx Allergies Allergy/AdvReac Type Severity Reaction Status Date / Time No Known Allergies Allergy Verified 09/06/19 07:40 Physical Exam Vitals: Vital Signs Temp Pulse Resp BP Pulse Ox 09/08/19 05:00 98.3 F 74 16 108/67 96 09/07/19 20:31 98.2 F 68 16 110/70 98 09/07/19 12:21 98 F 56 L 17 95/57 98 Intake and Output 09/07/19 09/08/19 09/08/19 22:59 06:59 14:59 Intake Total 480 580 Balance 480 580 Intake: Intake, IV Titration 480 580 Amount Piperacillin-Tazobactam 3 100 .375 gm In Sodium Chloride 0.9% 100 ml @ 25 mls/hr IVPB Q8H [facility] Rx#: [id number] Sodium Chloride 0.9% 1, 480 480 000 ml @ 120 mls/hr IV . Q8H20M [facility] Rx#:[id number] Other: Voiding Method Toilet Toilet GENERAL: The patient is alert and oriented x3, not in any acute distress. Well developed, well nourished. HEENT: Pupils are round and equally reacting to light. EOMI. No scleral icterus. No conjunctival pallor. Normocephalic, atraumatic. No pharyngeal erythema. No thyromegaly. CARDIOVASCULAR: S1 and S2 present. No murmurs, rubs, or gallops. PULMONARY: Chest is clear to auscultation, no wheezing or crackles. -ABDOMEN: Soft, mild RUQ tenderness with no rebound tenderness, nondistended, normoactive bowel sounds. No palpable organomegaly. MUSCULOSKELETAL: No joint swelling or deformity. EXTREMITIES: No cyanosis, clubbing, or pedal edema. NEUROLOGICAL: Gross neurological examination did not reveal any focal deficits. SKIN: No rashes. No petechiae Gait is normal Results CBC & Chem 7: 09/07/19 07:22 09/08/19 06:59 Labs: Abnormal Lab Results - Last 24 Hours (Table) 09/07/19 09/08/19 Range/Units 07:22 06:59 Chloride 109 H (98-107) mmol/L Total Bilirubin 1.5 H (0.2-1.3) mg/dL AST 531 H 181 H (14-36) U/L ALT 498 H 356 H (4-34) U/L Alkaline Phosphatase 135 H (38-126) U/L Total Protein 6.2 L 6.1 L (6.3-8.2) g/dL Albumin 3.4 L 3.3 L (3.5-5.0) g/dL Microbiology - Last 24 Hours (Table) 09/06/19 07:36 Urine Culture - Final Urine,Voided Escherichia coli 09/06/19 10:44 Blood Culture - Preliminary Blood No Growth after 24 hours Assessment and Plan Assessment: Acute cholecystitis, status post laparoscopic cholecystectomy Elevated liver enzymes suspicious for retained CBD stone versus other. Evaluat ed by GI for possible ERCP acute urinary tract infection, improving Multiple sclerosis History of bronchitis Plan: This is a pleasant 53 years old female status post cholecystectomy, limited liver enzymes and possible UTI. Continue with antibiotics and IV hydration. GI team evaluated the patient for possible ERCP. Postsurgical care with pain management and DVT prophylaxis by the primary team Labs and medication were reviewed.. Continue same treatment. Continue with symptomatic treatment. Resume home medication. Monitor lytes and vitals. DVT and GI prophylaxis. Further recommendations of the clinical course of the patient DVT prophylaxis: Currently patient is on Subcutaneous heparin GI Prophylaxis: Ppi Recommend patient follow up with her primary care doctor within 1 week after discharge Thank you for consulting us
--- NOTE | 2019-09-08 11:33 | P.PN ---
Progress Note - Text Progress Note Date: 09/08/19 Patient feels well. She has minimal pain. On exam her vital signs are stable. Her abdomen soft. Incision sites are clean and intact. Status post laparoscopic ostectomy. Patient was discharged home. She'll follow-up Dr. Shukla next week.
[2019-09-08 12:18] VITALS: BP 113/67; PULSE 77; RESP 17; TEMP 97.7
--- NOTE | 2019-09-08 22:53 | P.PN ---
Subjective Progress Note Date: 09/08/19 Principal diagnosis: Elevated liver enzymes Patient seen lying in bed reporting she is feeling better. Tolerating diet. No nausea or vomiting. Objective - Vital Signs Vital signs: Vital Signs Temp 97.7 F 09/08/19 12:17 Pulse 77 09/08/19 12:17 Resp 17 09/08/19 12:17 BP 113/67 09/08/19 12:17 Pulse Ox 96 09/08/19 12:17 Intake & Output 09/07/19 09/08/19 09/08/19 18:59 06:59 18:59 Intake Total 580 1060 Balance 580 1060 Weight 56.699 kg Intake: Intake, IV Titration 100 1060 Amount Piperacillin-Tazobactam 3 100 100 .375 gm In Sodium Chloride 0.9% 100 ml @ 25 mls/hr IVPB Q8H [facility] Rx#: [id number] Sodium Chloride 0.9% 1, 960 000 ml @ 120 mls/hr IV . Q8H20M [facility] Rx#:[id number] Oral 480 Other: Voiding Method Toilet Toilet Toilet - Exam On physical examination, patient appears comfortable in no apparent distress. HEAD: Normocephalic, atraumatic. EYES: No scleral icterus. No conjunctival injection. MOUTH: No lesions, tongue midline. NECK: Trachea midline, no gross abnormalities. ABDOMEN: Soft, mildly tender to palpation. Bowel sounds are positive. No organomegaly. No guarding or rigidity. EXTREMITIES: No pedal edema. SKIN: No rashes, no jaundice. NEUROLOGIC: Alert and oriented x3. No focal deficits. - Labs CBC & Chem 7: 09/07/19 07:22 09/08/19 06:59 Labs: Abnormal Lab Results - Last 24 Hours (Table) 09/08/19 Range/Units 06:59 Chloride 109 H (98-107) mmol/L AST 181 H (14-36) U/L ALT 356 H (4-34) U/L Total Protein 6.1 L (6.3-8.2) g/dL Albumin 3.3 L (3.5-5.0) g/dL Microbiology - Last 24 Hours (Table) 09/06/19 07:36 Urine Culture - Final Urine,Voided Escherichia coli 09/06/19 10:44 Blood Culture - Preliminary Blood No Growth after 24 hours Assessment and Plan (1) Elevated liver enzymes Narrative/Plan: 53-year-old female presented to the hospital with complaints of abdominal pain found to have acute cholecystitis on ultrasound imaging and status post laparoscopic cholecystectomy. The patient whose liver enzymes were initially normal on presentation trended up today with total bilirubin 1.5, alkaline phosphatase 135, AST 531 and ALT 498. She is denying any eliza pain but does report tenderness in the area of cholecystectomy. Overall liver enzymes improving today. Likely etiology secondary to acute cholecystitis. Status: Acute Code(s): R74.8 - ABNORMAL LEVELS OF OTHER SERUM ENZYMES SNOMED Code(s): 285239337 (2) Cholecystitis Status: Acute Code(s): K81.9 - CHOLECYSTITIS, UNSPECIFIED SNOMED Code(s): 26281364 Plan: Supportive care Diet per surgical service, okay to continue at this time Continue to monitor CBC, CMP Liver enzymes trending down today Continue broad-spectrum antibiotic therapy No plans for ERCP given her improved clinical status outpatient and improving liver enzymes Okay for discharge when otherwise medically stable Thank you for allowing us to participate in the care of the patient
== END 2019-09-08 15:30 | disposition home or self-care (01) ==
LOC: EC 06:49 → 5NMEDONC 10:08 → OBSVTOIN 09-08 08:23 → INTOOBSV 09-08 08:23 → UNDODISIN 09-08 15:30
PROVIDERS: ADMIT Surgery; ATTEND Surgery
PROC: 0FT44ZZ Resection of Gallbladder, Percutaneous Endoscopic Approach (ICD-10-PCS; principal; 2019-09-06 08:15)
DX: K80.12 Calculus of gallbladder with acute and chronic cholecystitis without obstruction (principal); N30.00 Acute cystitis without hematuria; B96.20 Unspecified Escherichia coli [E. coli] as the cause of diseases classified elsewhere; R74.0 Nonspecific elevation of levels of transaminase and lactic acid dehydrogenase [LDH]; G35 Multiple sclerosis; F17.200 Nicotine dependence, unspecified, uncomplicated; Z79.899 Other long term (current) drug therapy; Z87.440 Personal history of urinary (tract) infections; Z87.09 Personal history of other diseases of the respiratory system; Z87.81 Personal history of (healed) traumatic fracture; Z82.5 Family history of asthma and other chronic lower respiratory diseases; Z82.49 Family history of ischemic heart disease and other diseases of the circulatory system; Z82.69 Family history of other diseases of the musculoskeletal system and connective tissue
CPT/HCPCS: 47562; 96361; 96374; 96375; 99285; 36415; 93005; 88304; 80053 ×3; 82150; 83690; 84484; 85025 ×2; 81001; 81025; 87040; 87086; 87077; 87186; 74018; 76705; G0378 ×3; J2543 ×3; J2250; J1644 ×2; J1100; J2710; J2405; J2001; J3010; J1885; J1170 ×2; J0330; J2704; C9113 ×2

== ENCOUNTER → 2019-09-18 | Outpatient (CLI) | payer BC ==
[2019-09-18 15:56] LABS: African American GFR (CKD) 98.2 (60.0-200.0); Albumin 4.8 g/dL (3.80-4.90); Albumin/Globulin Ratio 1.92 (1.60-3.17); Calcium 10.1 mg/dL (8.7-10.3); Globulin 2.5 g/dL (1.6-3.3); Non-African American GFR(CKD) 84.8 (60.0-200.0); Potassium 3.9 mmol/L (3.5-5.5); Total Bilirubin 0.8 mg/dL (0.3-1.2); Total Protein 7.3 g/dL (6.2-8.2)
== END | disposition home or self-care (01) ==
LOC: LABWHC1 11:20
PROVIDERS: ATTEND Surgery
DX: K81.2 Acute cholecystitis with chronic cholecystitis (principal)
CPT/HCPCS: 36415; 80053